=== PATIENT | male | born 1960 | race African-American/Black ===

== ENCOUNTER → 2017-02-10 20:11 | Outpatient (CLI) | payer OTHER | END | disposition home or self-care (01) | LOC: D.LABREF 20:11 | DX: Z13.9 Encounter for screening, unspecified (principal) ==

== ENCOUNTER → 2018-01-11 10:02 | Outpatient (CLI) | payer BC | END | disposition home or self-care (01) | LOC: D.CT 10:00 | DX: K86.2 Cyst of pancreas (principal) ==

== ENCOUNTER → 2018-07-31 09:25 | Outpatient (CLI) | payer BC | END | disposition home or self-care (01) | LOC: D.CT 09:25 | DX: K86.2 Cyst of pancreas (principal) ==